=== PATIENT | female | born 1975 | race Caucasian/White ===

== ENCOUNTER 2017-02-03 17:34 | Emergency (ER) | payer OTHER ==
[~2017-02-03 17:34] MED LIST: COLACE 100MG C100 MG PO
[2017-02-03 20:57] LABS: HEMOGLOBIN 14.2 gm/dl (12.3-15.3); RED BLOOD COUNT 4.38 M/UL (4.00-5.10); WHITE BLOOD COUNT 13.9 K/UL (4.5-11.0)
[2017-02-03 21:13] LABS: BUN/CREATININE RATIO 17 (0-10)
== END 2017-02-03 23:40 | disposition home or self-care (01) ==
LOC: ER1 17:34
PROVIDERS: Family Medicine
DX: H66.93 Otitis media, unspecified, bilateral (principal)
CPT/HCPCS: 36415; 70486; 80053; 85025; 87040; 96365; 96375; 99283; J0295; J1885; J7050